=== PATIENT | male | born 2000 | race Caucasian/White ===

== ENCOUNTER 2019-12-10 19:05 | Emergency (ER) | payer OTHER ==
--- NOTE | 2019-12-10 20:29 | ED Physician Documentation ---
PD HPI LOWER EXT INJURY - Stated complaint Stated Complaint: RT FOOT INJURY - Chief complaint Chief Complaint: Ext Problem - History obtained from History obtained from: Patient - History of Present Illness PD HPI LOW EXT INJURY LOCATION: Right, Ankle, Foot Type of injury: Twist (Playing basketball and had a inversion and plantar the twisting of the ankle as he came down from a jump. He had pain right away and was unable to bear weight. He states it was swollen almost immediately after the injury. He had to hop or hobble initially. He had crutches at home from a prior episode of other injury. He was using those subsequently and came here for evaluation.) Timing - onset: How many hours ago (few), Today Timing - duration: Hours Timing - details: Abrupt onset, Still present Worsened by: Moving, Palpating, Other (any weight bearing) Associated symptoms: Swelling. No: Weakness, Numbness Similar symptoms before: Has not had sx before (He had a torn ligaments on the other ankle few years ago and had to be off of it for a month or 2 with crutches. He does not believe he is injured his right ankle significantly (fractures) before.) Review of Systems Skin: denies: Abrasion (s), Laceration (s) Neurologic: denies: Focal weakness, Numbness PD PAST MEDICAL HISTORY - Past Medical History Past Medical History: No Musculoskeletal: Other (He states he has had both sides in the past with the torn ligaments on the left several years ago. He states his ankles do turn or twist easily with active activities.) - Present Medications Home Medications: Ambulatory Orders Medication Instructions Recorded Confirmed Hydrocodone/Acetaminophen [Alpine 1 each PO Q6H PRN #12 tablet 12/10/19 5-325 Tablet] Ibuprofen [Motrin] 600 mg PO TID PRN #25 tab 12/10/19 - Allergies Allergies/Adverse Reactions: Allergies Allergy/AdvReac Type Severity Reaction Status Date / Time No Known Drug Allergies Allergy Verified 12/10/19 19:14 - Social History Does the pt smoke?: No Smoking Status: Never smoker Does the pt drink ETOH?: Yes Substance Use and Type: Marijuana PD ED PE NORMAL - Vitals Vital signs reviewed: Yes - General General: Alert and oriented X 3, Well developed/nourished - Derm Derm: Normal color, Warm and dry - Extremities Extremities: Other (There is considerable effusion in the right ankle mainly laterally but also anteriorly. The Achilles is firm and nontender. Range of motion of the ankle is guarded and causes pain. There is tenderness over the l ateral navicular area of the foot on the right side. There is good color capillary refill and sensation in the toe tips.) - Neuro Neuro: Alert and oriented X 3, No motor deficit, No sensory deficit Results - Vitals Vitals: Vital Signs - 24 hr 12/10/19 12/10/19 19:14 21:17 Temperature 36.8 C 36.8 C Heart Rate 73 75 Respiratory 16 16 Rate Blood Pressure 163/68 H 152/65 H O2 Saturation 100 100 Oxygen O2 Source Room air - Rads (name of study) Right ankle Radiology: Prelim report reviewed (There is an effusion noted. There is no notable malleolar fracture per se. There is a small bone fragment lateral navicular area possibly consistent with an avulsion.), See rad report PD MEDICAL DECISION MAKING - ED course Complexity details: reviewed results, considered differential (It is onset of pain and effusion and swelling with the degree of tenderness is suggestive of some torn ligaments. No obvious fracture of note. There is a small avulsive deformity laterally reinforcing the concern for torn ligaments. We will place him in a cast boot and he already has crutches. Follow-up with Ortho.), d/w patient Departure - Departure Disposition: 01 Home, Self Care Clinical Impression: High ankle sprain Qualifiers: Encounter type: initial encounter Laterality: right Qualified Code(s): S93.491A - Sprain of other ligament of right ankle, initial encounter Condition: Stable Record reviewed to determine appropriate education?: Yes Instructions: ED Sprain Ankle Follow-Up: [facility] [Provider Group] Prescriptions: Hydrocodone/Acetaminophen [Alpine 5-325 Tablet] 1 each PO Q6H PRN #12 tablet PRN Reason: Pain Ibuprofen [Motrin] 600 mg PO TID PRN #25 tab PRN Reason: Pain Comments: By your mechanism, symptoms, and exam, I presume you have a partial tear of some of the ligaments of the ankle. This is likely to take 3 or 4 weeks to heal. However may be more of a simple sprain and get better within a week or two. At this point will have you use a walking cast boot and crutches with initially no weightbearing until the swelling is down and then partial weightbearing as tolerated. Follow-up with orthopedics in about a week for reexam to see the ligaments debility and whether he needs more prolonged splinting. Call for an appt. Use some anti-inflammatory such as ibuprofen 3 times a day. To that add Tylenol or pain medicine if needed. Presume no to minimal weightbearing in the first week and I wrote you a work note. Forms: Activity restrictions Discharge Date/Time: 12/10/19 21:18
--- NOTE | 2019-12-10 20:37 | XRAY Report ---
Reason: injury to ankle Procedure Date: 12/10/2019 Accession Number: [id number] / [id number] Procedure: XR - Ankle 3 View RT CPT Code: Final Report FULL RESULT: PROCEDURE: Ankle 3 View RT INDICATIONS: injury to ankle TECHNIQUE: 3 views of the ankle were acquired. COMPARISON: Right foot FINDINGS: Bones: No fractures or dislocations but there is a small calcific radiodensity at the lateral border of the hindfoot seen on the straight AP projection, potentially a small avulsion fragment related to ligamentous injury. Ankle mortise is normally aligned. No suspicious bony lesions. Soft tissues: No tibiotalar joint effusion. Achilles tendon appears normal. IMPRESSION: A definite fracture is not seen but there is a small calcific radiodensity along the lateral border of the hindfoot in the expected position of the tibiotalar joint, potentially a small avulsion fragment from ligamentous injury. There appears to be mild soft tissue swelling in this area, please correlate clinically. A displaced fracture is not found. Reviewed by: Kraig Krishnamurthy MD on 12/10/2019 8:36 PM PDT Approved by: Kraig Krishnamurthy MD on 12/10/2019 8:36 PM PDT Station ID: [id number]
[2019-12-10] MEDS ORDERED: IBUPROFEN 800 MG TABLET PO STA (20:54)
[2019-12-10] MEDS ORDERED: ACETAMINOPHEN 325 MG TABLET PO STA (20:54)
[2019-12-10 21:18] VITALS: BP 152/65
== END 2019-12-10 21:18 | disposition home or self-care (01) ==
LOC: ED 19:05
DX: S93.491A Sprain of other ligament of right ankle, initial encounter (principal); X50.1XXA Overexertion from prolonged static or awkward postures, initial encounter; Y93.67 Activity, basketball
CPT/HCPCS: 73610; 99283; A9270